=== PATIENT | female | born 1965 | race Hispanic/Latino ===

== ENCOUNTER 2017-02-12 11:42 | Emergency (ER) | payer MEDICARE ==
--- NOTE | 2017-02-12 13:35 | XRay Report ---
LEFT KNEE, 3 views: History: Left knee pain after fall There is normal bone mineralization. No evidence for acute fracture or bone lesion. Severe osteoarthritic changes are identified in all 3 compartments. There is near-complete loss of joint space in the medial compartment. Small joint effusion. IMPRESSION: Advanced osteoarthritic changes. Joint effusion. No acute injury appreciated.
[2017-02-12] MEDS ORDERED: TYLENOL PO ONE (14:09)
--- NOTE | 2017-02-12 14:51 | Emergency Department Report ---
ED Lower Extremity HPI - General Chief Complaint: Extremity Injury, Lower Stated Complaint: FALL LEFT KNEE PAIN Time Seen by Provider: 02/12/17 13:46 Source: patient Mode of arrival: Wheelchair Limitations: No Limitations - History of Present Illness Initial Comments: This is a 51-year-old female nontoxic, well nourished in appearance, no acute signs of distress presents to the ED complaining of left knee pain times one day. Patient states she was walking to her car and her right knee gave out and she slipped and the lateral left knee from standstill fall. Patient complains knee pain as aching but denies numbness or tingling. Patient stated he has decreased range of motion due to the pain with abnormal gait due to pain. Patient denies fever, chills, head trauma, loss consciousness, numbness, tingling, chest pain, shortness of breath, nausea vomiting. Patient denies any headache or blurred vision. Allergies include aspirin and penicillin and tramadol. Past medical history is hypertension. MD Complaint: knee injury -: Gradual, days(s) (2) Injury: Knee: Left Place: street/outdoors Severity: mild Severity scale (0 -10): 7 Improves With: nothing Worsens With: movement Context: fall Associated Symptoms: swelling, able to partially bear weight, ambulatory. denies: snap/pop sensation, numbness, tingling, unable to bear weight - Related Data Home Medications Medication Instructions Recorded Confirmed Last Taken Citalopram Hydrobromide [celeXA] 20 mg PO QDAY 07/30/14 07/30/14 07/29/14 21:00 Previous Rx's Medication Instructions Recorded Last Taken Type Acetaminophen/Codeine [Tylenol #3] 1 tab PO Q6H PRN #15 tab 01/29/15 Unknown Rx Ibuprofen [Motrin 800 MG tab] 800 mg PO Q8H PRN #30 tablet 01/29/15 Unknown Rx HYDROcodone/APAP 5-325 [[place] 1 each PO Q6HR PRN #12 tablet 08/05/15 Unknown Rx 5-325 mg TAB] Acetaminophen [Tylenol Arthritis] 650 mg PO Q6H #30 tablet.er 02/12/17 Unknown Rx Allergies Allergy/AdvReac Type Severity Reaction Status Date / Time aspirin Allergy Swelling Verified 07/30/14 11:44 Penicillins Allergy Swelling Verified 07/30/14 11:44 tramadol HCl [From Ultram] AdvReac Vomiting Verified 07/30/14 11:44 ED Review of Systems ROS: Stated complaint: FALL LEFT KNEE PAIN Other details as noted in HPI Constitutional: denies: chills, fever Eyes: denies: eye pain, eye discharge, vision change ENT: denies: ear pain, throat pain Respiratory: denies: cough, shortness of breath, wheezing Cardiovascular: denies: chest pain, palpitations Endocrine: no symptoms reported Gastrointestinal: denies: abdominal pain, nausea, diarrhea Genitourinary: denies: urgency, dysuria, discharge Musculoskeletal: denies: back pain, joint swelling, arthralgia Skin: denies: rash, lesions Neurological: denies: headache, weakness, paresthesias Psychiatric: denies: anxiety, depression Hematological/Lymphatic: denies: easy bleeding, easy bruising ED Past Medical Hx - Past Medical History Previous Medical History?: Yes Hx Hypertension: Yes Hx Psychiatric Treatment: Yes (bipolar, schizophrenic) Additional medical history: Cystitis, chronic back pain. chronic hip and knee pain - Surgical History Past Surgical History?: Yes Additional Surgical History: Bladder surgery - Social History Smoking Status: Never Smoker Substance Use Type: None - Medications Home Medications: Home Medications Medication Instructions Recorded Confirmed Last Taken Type Citalopram Hydrobromide [celeXA] 20 mg PO QDAY 07/30/14 07/30/14 07/29/14 21:00 History Acetaminophen/Codeine [Tylenol #3] 1 tab PO Q6H PRN #15 tab 01/29/15 Unknown Rx Ibuprofen [Motrin 800 MG tab] 800 mg PO Q8H PRN #30 tablet 01/29/15 Unknown Rx HYDROcodone/APAP 5-325 [[place] 1 each PO Q6HR PRN #12 tablet 08/05/15 Unknown Rx 5-325 mg TAB] Acetaminophen [Tylenol Arthritis] 650 mg PO Q6H #30 tablet.er 02/12/17 Unknown Rx ED Physical Exam - General Limitations: No Limitations General appearance: alert, in no apparent distress - Head Head exam: Present: atraumatic, normocephalic, normal inspection - Eye Eye exam: Present: normal appearance, PERRL, EOMI. Absent: scleral icterus, conjunctival injection, nystagmus, periorbital swelling, periorbital tenderness Pupils: Present: normal accommodation - ENT ENT exam: Present: normal exam, normal orophraynx, mucous membranes moist, TM's normal bilaterally, normal external ear exam - Neck Neck exam: Present: normal inspection, full ROM. Absent: tenderness, meningismus, lymphadenopathy, thyromegaly - Respiratory Respiratory exam: Present: normal lung sounds bilaterally. Absent: respiratory distress, wheezes, rales, rhonchi, stridor, chest wall tenderness, accessory muscle use, decreased breath sounds, prolonged expiratory - Cardiovascular Cardiovascular Exam: Present: regular rate, normal rhythm, normal heart sounds. Absent: bradycardia, tachycardia, irregular rhythm, systolic murmur, diastolic murmur, rubs, gallop - GI/Abdominal GI/Abdominal exam: Present: soft, normal bowel sounds. Absent: distended, tenderness, guarding, rebound, rigid, diminished bowel sounds - Rectal Rectal exam: Present: deferred - Extremities Exam Extremities exam: Present: normal inspection, full ROM, tenderness, normal capillary refill. Absent: pedal edema, joint swelling, calf tenderness - Expanded Lower Extremity Exam Left Hip exam: Present: normal inspection, full ROM, external rotation, internal rotation, pelvic stability. Absent: tenderness, swelling, abrasion, laceration , ecchymosis, deformity, crepidus, dislocation, erythema, shortening Upper Leg exam: Present: normal inspection, full ROM. Absent: tenderness, swelling, abrasion, laceration, ecchymosis, deformity, crepidus, dislocation, erythema Knee exam: Present: normal inspection, full ROM, tenderness, swelling, ecchymosis, full knee extension. Absent: abrasion, laceration, deformity, crepidus, dislocation, erythema, effusion, pain w/ pronation/supination, posterior draw sign, pain/laxity with valgus, pain/laxity with varus Lower Leg exam: Present: normal inspection, full ROM. Absent: tenderness, swelling, abrasion, laceration, ecchymosis, deformity, crepidus, dislocation, erythema, palpable cord, Jennifer's sign Ankle exam: Present: normal inspection, full ROM. Absent: tenderness, swelling , abrasion, laceration, ecchymosis, deformity, crepidus, dislocation, erythema, anterior draw sign Foot/Toe exam: Present: normal inspection, full ROM. Absent: tenderness, swelling, abrasion, laceration, ecchymosis, deformity, crepidus, dislocation, erythema, amputation, puncture wound, foreign body, calcaneal tenderness, tenderness at base of 5th metatarsal, nail avulsion, subungual hematoma Neuro vascular tendon exam: Present: no vascular compromise. Absent: pulse deficit, abnormal cap refill, motor deficit, sensory deficit, tendon deficit, extremity cold to touch, pallor, abnormal 2-point discrimination, decreased fine /light touch, foot drop, peroneal nerve deficit, significant pain with passive ROM of distal joint Gait: Positive: observed and limited by pain - Back Exam Back exam: Present: normal inspection, full ROM. Absent: tenderness, CVA tenderness (R), CVA tenderness (L), muscle spasm, paraspinal tenderness, vertebral tenderness, rash noted - Neurological Exam Neurological exam: Present: alert, oriented X3, CN II-XII intact, normal gait, reflexes normal - Psychiatric Psychiatric exam: Present: normal affect, normal mood - Skin Skin exam: Present: warm, dry, intact, normal color. Absent: rash ED Course Vital Signs 02/12/17 11:53 Temperature 97.7 F Pulse Rate 79 Blood Pressure 135/65 - Reevaluation(s) Reevaluation #1: 02/12/17 14:52 Patient is speaking in full sentences with no signs of distress noted. ED Lower Extremity MDM - Medical Decision Making this is a 51-year-old female that presents with left knee strain status post fall. X-ray has been obtained and dictated by Dr. Duong. Impression; advance as arthritic changes with small joint effusion and no fractures or dislocations noted. Patient is notified of x-ray results with no gross motor by the patient. It was instructed to follow-up with Dr. Aguirre or another orthopedic doctor in 3-5 days or if symptoms worse and continue return to emergency room as soon as possible. Patient received a knee immobilizer as well as crutches and crutches has been educated by RN. At time time of discharge, the patient does not seem toxic or ill in appearance. No acute signs of distress noted. Patient agrees to discharge treatment plan of care. No further questions noted by the patient. Patient was also instructed to rest, elevate, ice extremity. Patient received acetaminophen and ice to the extremity in the ED. Critical care attestation.: If time is entered above; I have spent that time in minutes in the direct care of this critically ill patient, excluding procedure time. ED Disposition Clinical Impression: Strain of left knee Qualifiers: Encounter type: initial encounter Qualified Code(s): S86.912A - Strain of unspecified muscle(s) and tendon(s) at lower leg level, left leg, initial encounter Disposition: TO HOME OR SELFCARE Is pt being admited?: No Does the pt Need Aspirin: No Condition: Stable Instructions: Knee Pain (ED), Knee Immobilizer (ED), Crutch Instructions (ED), RICE Therapy (ED), Acetaminophen (By mouth) Additional Instructions: follow-up with Dr. Aguirre or another orthopedic doctor in 3-5 days or if symptoms worse and continue return to emergency room as soon as possible. Rest, elevate, ice extremity. Prescriptions: Acetaminophen [Tylenol Arthritis] 650 mg PO Q6H #30 tablet.er Referrals: PRIMARY MD SAMMY [Primary Care Provider] - 3-5 Days KEVIN AGUIRRE MD [Staff Physician] - 3-5 Days [facility] [Outside] - 3-5 Days [facility] [Outside] - 3-5 Days
[2017-02-12 15:45] VITALS: BP 132/71
== END 2017-02-12 15:38 | disposition home or self-care (01) ==
LOC: ED 11:42
DX: S86.912A Strain of unspecified muscle(s) and tendon(s) at lower leg level, left leg, initial encounter (principal); I10 Essential (primary) hypertension; G89.29 Other chronic pain; F20.9 Schizophrenia, unspecified; Z88.0 Allergy status to penicillin; Z79.82 Long term (current) use of aspirin; Z88.8 Allergy status to other drugs, medicaments and biological substances; F41.9 Anxiety disorder, unspecified

== ENCOUNTER 2019-01-07 08:33 | Emergency (ER) | payer MEDICARE ==
[2019-01-07] MEDS ORDERED: MORPHINE IV ONE (10:40)
--- NOTE | 2019-01-07 10:44 | Emergency Department Report ---
ED General Adult HPI - General Chief complaint: Neuro Symptoms/Deficit Stated complaint: PAIN IN LEFT LEG Time Seen by Provider: 01/07/19 10:27 Source: patient, EMS Mode of arrival: Stretcher Limitations: No Limitations - History of Present Illness Initial comments: 52-year-old female presents to ED with complaint of neck pain, left arm pain and numbness since this morning. She states she woke up with the pain this morning at around 7 AM. Patient states pain is radiating from the neck to the left shoulder down into the left arm with tingling present. Patient denies any weakness in the left arm. Denies injury. Patient denies any numbness or we akness in the left leg, however she does report one to 2 month history of cellulitis that has been treated with 2 different antibiotics, one of which was Bactrim, patient does not remember the other antibiotic she was on. Denies fever. Reports warmth, redness, pain in the left lower leg. Patient reports history of arthritis, chronic back pain for which she currently takes Percocet and morphine at home. PCP: Madd[place] -: This morning Location: neck, left, upper extremity, lower extremity Severity scale (0 -10): 10 Quality: sharp Consistency: constant Improves with: none Worsens with: none Associated Symptoms: denies: chest pain, cough, fever/chills, headaches, nausea/vomiting, shortness of breath - Related Data Home Medications Medication Instructions Recorded Confirmed Last Taken Citalopram Hydrobromide [celeXA] 20 mg PO QDAY 07/30/14 01/07/19 01/06/19 ARIPiprazole [Abilify TAB] 5 mg PO DAILY 01/07/19 01/07/19 01/06/19 Allopurinol [Zyloprim] 300 mg PO QDAY 01/07/19 01/07/19 01/06/19 AtorvaSTATin [Lipitor] 40 mg PO QHS 01/07/19 01/07/19 01/06/19 Cariprazine HCl [Vraylar] 1.5 mg PO QDAY 01/07/19 01/07/19 01/06/19 Clindamycin [Clindamycin CAP] 600 mg PO BID 01/07/19 01/07/19 01/06/19 Gabapentin [Neurontin] 300 mg PO Q8HR 01/07/19 01/07/1901/06/19 Levothyroxine [Synthroid] 75 mcg PO QAM 01/07/19 01/07/19 01/06/19 Lidocaine [Lidocaine OINT] 30 gm TP 2XWHS 01/07/19 01/07/19 01/06/19 Morphine Sulfate [Ms Contin] 60 mg PO Q12H 01/07/19 01/07/19 01/03/19 Pregabalin [Lyrica] 100 mg PO BID 01/07/19 01/07/19 01/06/19 oxyCODONE /ACETAMINOPHEN [Percocet 1 tab PO Q8H 01/07/19 01/07/19 01/05/19 5/325] Previous Rx's Medication Instructions Recorded Last Taken Type Clindamycin [Clindamycin CAP] 300 mg PO Q8H #21 cap 01/07/19 Unknown Rx methOCARBAMOL [Robaxin TAB] 500 mg PO Q8HR PRN #20 tablet 01/07/19 Unknown Rx Allergies Allergy/AdvReac Type Severity Reaction Status Date / Time aspirin Allergy Swelling Verified 07/30/14 11:44 Penicillins Allergy Swelling Verified 07/30/14 11:44 tramadol HCl [From Ultram] AdvReac Vomiting Verified 07/30/14 11:44 ED Review of Systems ROS: Stated complaint: PAIN IN LEFT LEG Other details as noted in HPI Comment: All other systems reviewed and negative Constitutional: denies: chills, fever Respiratory: denies: cough, shortness of breath Cardiovascular: denies: chest pain Gastrointestinal: denies: nausea, vomiting Musculoskeletal: other (reports neck pain, left arm pain, left leg pain) Neurological: paresthesias. denies: headache, weakness ED Past Medical Hx - Past Medical History Hx Hypertension: Yes Hx Psychiatric Treatment: Yes (bipolar, schizophrenic) Additional medical history: Cystitis, chronic back pain. chronic hip and knee pain - Surgical History Additional Surgical History: Bladder surgery - Social History Smoking Status: Current Every Day Smoker - Medications Home Medications: Home Medications Medication Instructions Recorded Confirmed Last Taken Type Citalopram Hydrobromide [celeXA] 20 mg PO QDAY 07/30/14 01/07/19 01/06/19 History ARIPiprazole [Abilify TAB] 5 mg PO DAILY 01/07/19 01/07/19 01/06/19 History Allopurinol [Zyloprim] 300 mg PO QDAY 01/07/19 01/07/19 01/06/19 History AtorvaSTATin [Lipitor] 40 mg PO QHS 01/07/19 01/07/19 01/06/19 History Cariprazine HCl [Vraylar] 1.5 mg PO QDAY 01/07/19 01/07/19 01/06/19 History Clindamycin [Clindamycin CAP] 300 mg PO Q8H #21 cap 01/07/19 Unknown Rx Clindamycin [Clindamycin CAP] 600 mg PO BID 01/07/19 01/07/19 01/06/19 History Gabapentin [Neurontin] 300 mg PO Q8HR 01/07/19 01/07/19 01/06/19 History Levothyroxine [Synthroid] 75 mcg PO QAM 01/07/19 01/07/19 01/06/19 History Lidocaine [Lidocaine OINT] 30 gm TP 2XWHS 01/07/19 01/07/19 01/06/19 History Morphine Sulfate [Ms Contin] 60 mg PO Q12H 01/07/19 01/07/19 01/03/19 History Pregabalin [Lyrica] 100 mg PO BID 01/07/19 01/07/19 01/06/19 History methOCARBAMOL [Robaxin TAB] 500 mg PO Q8HR PRN #20 tablet 01/07/19 Unknown Rx oxyCODONE /ACETAMINOPHEN [Percocet 1 tab PO Q8H 01/07/19 01/07/19 01/05/19 History 5/325] ED Physical Exam - General Limitations: No Limitations General appearance: alert, in no apparent distress, obese - Head Head exam: Present: atraumatic, normocephalic - Eye Eye exam: Present: normal appearance, PERRL, EOMI - ENT ENT exam: Present: mucous membranes moist - Neck Neck exam: Present: tenderness - Respiratory Respiratory exam: Present: normal lung sounds bilaterally. Absent: respiratory distress - Cardiovascular Cardiovascular Exam: Present: regular rate, normal rhythm - GI/Abdominal GI/Abdominal exam: Present: soft. Absent: distended, tenderness - Extremities Exam Extremities exam: Present: other (no swelling or deformity to left arm; left lower leg erythematous, tender) - Neurological Exam Neurological exam: Present: alert, oriented X3, CN II-XII intact. Absent: motor sensory deficit - Psychiatric Psychiatric exam: Present: normal affect, normal mood - Skin Skin exam: Present: warm, dry, intact, normal color ED Course Vital Signs 01/07/19 01/07/19 01/07/19 08:36 08:53 09:01 Temperature 98.2 F Pulse Rate 86 Respiratory 26 H 26 H Rate Blood Pressure Blood Pressure 142/75 134/81 [Left] O2 Sat by Pulse 97 97 Oximetry 01/07/19 01/07/19 01/07/19 09:54 10:00 10:30 Temperature Pulse Rate 82 82 87 Respiratory 24 25 H 21 Rate Blood Pressure 151/59 154/97 147/87 Blood Pressure [Left] O2 Sat by Pulse 99 93 Oximetry 01/07/19 01/07/19 01/07/19 11:00 11:23 11:40 Temperature Pulse Rate 85 81 Respiratory 13 18 17 Rate Blood Pressure 132/84 132/84 Blood Pressure [Left] O2 Sat by Pulse 98 100 Oximetry 01/07/19 01/07/19 01/07/19 11:57 12:00 12:30 Temperature 98.4 F Pulse Rate 84 83 Respiratory 24 14 Rate Blood Pressure 127/68 117/74 Blood Pressure [Left] O2 Sat by Pulse 96 93 Oximetry 01/07/19 13:00 Temperature Pulse Rate 84 Respiratory 17 Rate Blood Pressure Blood Pressure 112/74 [Left] O2 Sat by Pulse 98 Oximetry ED Medical Decision Making - Lab Data Result diagrams: 01/07/19 11:09 01/07/19 11:09 - EKG Data -: EKG Interpreted by Ia EKG shows normal: sinus rhythm, axis, intervals, QRS complexes, ST-T waves Rate: normal - EKG Data Interpretation: no acute changes - Radiology Data Radiology results: report reviewed, image reviewed - Medical Decision Making - neck and left arm pain w/ assoc paresthesias, likely cervical radiculopathy, strength is normal - left leg pain and redness x 2 months, US negative for DVT - pt reports having already been on bactrim, will prescribe clindamycin - advised to f/u w/ PCP - return precautions given - Differential Diagnosis DVT, cellulitis, radiculopathy Critical care attestation.: If time is entered above; I have spent that time in minutes in the direct care of this critically ill patient, excluding procedure time. ED Disposition Clinical Impression: Cellulitis, Cervical radiculopathy Disposition: TO HOME OR SELFCARE Is pt being admited?: No Condition: Stable Instructions: Cellulitis (ED), Cervical Radiculopathy (ED) Prescriptions: Clindamycin [Clindamycin CAP] 300 mg PO Q8H #21 cap methOCARBAMOL [Robaxin TAB] 500 mg PO Q8HR PRN #20 tablet PRN Reason: Muscle Spasm Referrals: JEFF OLIVA MD [Primary Care Provider] - 3-5 Days Time of Disposition: 12:56
[2019-01-07 12:06] LABS: BUN/Creatinine Ratio 13; Blood Urea Nitrogen 9 mg/dL (7-17); Calcium 9.2 mg/dL (8.4-10.2); Hemolysis Index 83
[2019-01-07] MEDS ORDERED: PERCOCET 5/325 PO ONE (12:07)
[2019-01-07 12:10] LABS: Basophils % (Auto) 0.2 % (0.0-1.8); Eosinophils # (Auto) 0.1 K/mm3 (0.0-0.4); Eosinophils % (Auto) 1.1 % (0.0-4.3); Hematocrit 42.9 % (30.3-42.9); Hemoglobin 14.4 gm/dl (10.1-14.3); Lymphocytes # (Auto) 2.1 K/mm3 (1.2-5.4); Mean Corpuscular HGB Conc 34 % (30-34); Mean Corpuscular Volume 94 fl (79-97); Monocytes # (Auto) 0.6 K/mm3 (0.0-0.8); Monocytes % (Auto) 6.7 % (0.0-7.3); Platelet Count 202 K/mm3 (140-440); Red Blood Count 4.55 M/mm3 (3.65-5.03); Red Cell Distribution Width 15.9 % (13.2-15.2)
[2019-01-07 12:25] LABS: Partial Thromboplastin Time 29.8 Sec. (24.2-36.6)
--- NOTE | 2019-01-07 12:53 | Vascular Lab Report ---
VL venous duplex LE LT INDICATION / CLINICAL INFORMATION: pain, swelling. COMPARISON: None available. FINDINGS: No evidence of deep vein thrombosis. IMPRESSION: 1. Negative study. Signer Name: Mau Cordova MD Signed: 01/07/2019 12:49 PM Workstation Name: [id number]
[2019-01-07 13:22] VITALS: BP 112/74
== END 2019-01-07 13:05 | disposition home or self-care (01) ==
LOC: ED 08:33
DX: M54.12 Radiculopathy, cervical region (principal); L03.116 Cellulitis of left lower limb; I10 Essential (primary) hypertension; F31.9 Bipolar disorder, unspecified; F20.9 Schizophrenia, unspecified; G89.29 Other chronic pain; F17.200 Nicotine dependence, unspecified, uncomplicated; Z79.899 Other long term (current) drug therapy; Z88.6 Allergy status to analgesic agent; Z88.0 Allergy status to penicillin
CPT/HCPCS: 36415; 80048; 85025; 85610; 85730; 93005; 93010; 93971; 96374; 99285; J2270

== ENCOUNTER 2021-01-17 15:51 | Observation (INO) | payer MEDICARE ==
[2021-01-17] MEDS ORDERED: NALOXONE 0.4 MG/1 ML INJ IV PRN (16:05)
[2021-01-17] MEDS ORDERED: NALOXONE 2 MG/2 ML INJ IV ONE (16:05)
[2021-01-17] MEDS: DEXTROSE 50% IN WATER (25GM) 50 ML SYRINGE IV PRN ×2 (16:08→22:08)
--- NOTE | 2021-01-17 16:11 | Event Note ---
Date: 01/17/21 The patient was evaluated in the emergency department for symptoms described in the history of present illness. He/she was evaluated in the context of the global COVID-19 pandemic, which necessitated consideration that the patient might be at risk for infection with the virus that causes COVID-19. Institutional protocols and algorithms that pertain to the evaluation of patients at risk for COVID-19 are in a state of rapid change based on information released by regulatory bodies including the CDC and federal and state organizations. These policies and algorithms were followed during the patient's care in the emergency department. Please note that these policies, procedures and recommendations changed on a rapid basis. Medical screening examination: The patient is a 55-year-old female who is not known to myself previously, who was brought to the hospital by emergency medical services with a complaint of altered mental status. History entirely obtained from EMS as the patient is altered. EMS reports the patient was in a fast [employer] parking lot for approximately 3 hours. However, her last known well time is not explicitly known. The patient was resting in her car. 911 was contacted because the patient appeared to be unresponsive. EMS reports negative stroke scale in the field, and unremarkable vital signs and Accu-Chek. Here in the emergency room, glucose is 66. The patient is sleepy but arousable. She responds to sternal stimuli. She states that she has total body pain. She states she does not have chronic medical conditions. However, she then falls back to sleep. She is found to be hypoxic on room air, 90 to 94%. She is morbidly obese. She also has lower extremity edema. Place patient on isolation, youth nutritional monitor, administer supplemental oxygen. Obtain arterial blood gas on room air, x-ray the chest, noncontrast CT scan of the brain, EKG, urinalysis, rectal temperature, and appropriate laboratory studies. Reassess after initial data points. Anticipate admission to the medical service once initial diagnostics have resulted. Place patient on Accu-Cheks every 1 hour, as needed dextrose, as needed Narcan. 04: 41 PM/01/17/2021 Patient given 0.5 mg of Narcan. She has become remarkably more responsive. At this point time, suspect opioid overdose. Remainder of laboratory studies and diagnostic work-up is pending. will place patient on 2012 on this time pending clinical sobriety and completion of work up Labs 01/17/21 01/17/21 01/17/21 15:53 16:16 16:17 WBC RBC Hgb Hct MCV MCH MCHC RDW Plt Count Lymph % (Auto) [place] % (Auto) Eos % (Auto) Baso % (Auto) Lymph # (Auto) [place] # (Auto) Eos # (Auto) Baso # (Auto) Seg Neutrophils % Seg Neutrophils # PT INR APTT ABG pH 7.395 POC ABG pCO2 41.5 POC ABG pO2 111.5 H POC ABG HCO3 24.8 ABG O2 Saturation 98.4 POC ABG Base Excess -0.1 ABG Hemoglobin 14.3 ABG Oxyhemoglobin 94.4 ABG Methemoglobin 0.3 ABG Sodium 139.4 ABG Potassium 3.0 L ABG Chloride 105.0 ABG Glucose 175 H Carboxyhemoglobin 3.8 H FiO2 % 21.0 Sodium Potassium Chloride Carbon Dioxide Anion Gap BUN Creatinine Estimated GFR BUN/Creatinine Ratio Glucose POC Glucose 66 L 154 H Lactic Acid Calcium Magnesium Total Bilirubin AST ALT Alkaline Phosphatase Ammonia Total Creatine Kinase Troponin T NT-Pro-B Natriuret Pep Total Protein Albumin Albumin/Globulin Ratio TSH Arterial Blood Glucose 175 H Arterial Blood Ionized Calcium 4.7 Salicylates Acetaminophen Plasma/Serum Alcohol 01/17/21 01/17/21 01/17/21 17:09 17:09 17:09 WBC 10.2 RBC 4.60 Hgb 14.7 H Hct 45.2 H MCV 98 H MCH 32 MCHC 33 RDW 14.7 Plt Count 219 Lymph % (Auto) [employer]st [place] % (Auto) Data Warehouse [employer]st Eos % (Auto) Data Warehouse [employer]st Baso % (Auto) Data Warehouse Analyst Lymph # (Auto) Data Warehouse Analyst [place] # (Auto) Data Warehouse Analyst Eos # (Auto) Data Warehouse Analyst Baso # (Auto) Data Warehouse Analyst Seg Neutrophils % Data Warehouse Analyst Seg Neutrophils # Data Warehouse Analyst PT 14.2 INR 1.05 APTT 33.5 ABG pH POC ABG pCO2 POC ABG pO2 POC ABG HCO3 ABG O2 Saturation POC ABG Base Excess ABG Hemoglobin ABG Oxyhemoglobin ABG Methemoglobin ABG Sodium ABG Potassium ABG Chloride ABG Glucose Carboxyhemoglobin FiO2 % Sodium 144 Potassium 3.5 L Chloride 106.1 Carbon Dioxide 28 Anion Gap 13 BUN 12 Creatinine 0.8 Estimated GFR > 60 BUN/Creatinine Ratio 15 Glucose 64 L POC Glucose Lactic Acid Calcium 9.5 Magnesium 2.20 Total Bilirubin 0.70 AST 15 ALT 9 Alkaline Phosphatase 96 Ammonia Total Creatine Kinase 107 Troponin T < 0.010 NT-Pro-B Natriuret Pep 72.91 Total Protein 6.4 Albumin 3.8 L Albumin/Globulin Ratio 1.5 TSH Arterial Blood Glucose Arterial Blood Ionized Calcium Salicylates Acetaminophen Plasma/Serum Alcohol 01/17/21 01/17/21 01/17/21 17:09 17:09 17:09 WBC RBC Hgb Hct MCV MCH MCHC RDW Plt Count Lymph % (Auto) [place] % (Auto) Eos % (Auto) Baso % (Auto) Lymph # (Auto) [place] # (Auto) Eos # (Auto) Baso # (Auto) Seg Neutrophils % Seg Neutrophils # PT INR APTT ABG pH POC ABG pCO2 POC ABG pO2 POC ABG HCO3 ABG O2 Saturation POC ABG Base Excess ABG Hemoglobin ABG Oxyhemoglobin ABG Methemoglobin ABG Sodium ABG Potassium ABG Chloride ABG Glucose Carboxyhemoglobin FiO2 % Sodium Potassium Chloride Carbon Dioxide Anion Gap BUN Creatinine Estimated GFR BUN/Creatinine Ratio Glucose POC Glucose Lactic Acid 1.50 Calcium Magnesium Total Bilirubin AST ALT Alkaline Phosphatase Ammonia 66.0 H Total Creatine Kinase Troponin T NT-Pro-B Natriuret Pep Total Protein Albumin Albumin/Globulin Ratio TSH 5.130 H Arterial Blood Glucose Arterial Blood Ionized Calcium Salicylates Acetaminophen Plasma/Serum Alcohol 01/17/21 01/17/21 01/17/21 17:09 17:09 17:09 WBC RBC Hgb Hct MCV MCH MCHC RDW Plt Count Lymph % (Auto) [place] % (Auto) Eos % (Auto) Baso % (Auto) Lymph # (Auto) [place] # (Auto) Eos # (Auto) Baso # (Auto) Seg Neutrophils % Seg Neutrophils # PT INR APTT ABG pH POC ABG pCO2 POC ABG pO2 POC ABG HCO3 ABG O2 Saturation POC ABG Base Excess ABG Hemoglobin ABG Oxyhemoglobin ABG Methemoglobin ABG Sodium ABG Potassium ABG Chloride ABG Glucose Carboxyhemoglobin FiO2 % Sodium Potassium Chloride Carbon Dioxide Anion Gap BUN Creatinine Estimated GFR BUN/Creatinine Ratio Glucose POC Glucose Lactic Acid Calcium Magnesium Total Bilirubin AST ALT Alkaline Phosphatase Ammonia Total Creatine Kinase Troponin T NT-Pro-B Natriuret Pep Total Protein Albumin Albumin/Globulin Ratio TSH Arterial Blood Glucose Arterial Blood Ionized Calcium Salicylates < 0.3 L Acetaminophen 5.0 L Plasma/Serum Alcohol < 0.[address] scan of the brain is negative for acute finding CT head/brain wo con INDICATION: Altered Mental Status. TECHNIQUE: All CT scans at this location are performed using CT dose reduction for ALARA by means of automated exposure control. COMPARISON: None available. FINDINGS: There is no evidence of hemorrhage, hydrocephalus, brain edema, or mass effect/mass lesion. There is a chronic lacunar infarct in the right gangliocapsular region. The included paranasal sinuses and mastoid air cells are clear. The orbits appear unremarkable. IMPRESSION: 1. No acute intracranial abnormality. Signer Name: Asim Mendoza MD Signed: 01/17/2021 5:58 PM Workstation Name: [email or web address]
[2021-01-17] MEDS ORDERED: LORazepam 2 MG/ML VIAL IM PRN (16:47)
[2021-01-17] MEDS ORDERED: HALOPERIDOL LACTATE 5 MG/1 ML INJ IM PRN (16:47)
[2021-01-17 17:58] LABS: Hematocrit 45.2 % (30.3-42.9); Hemoglobin 14.7 gm/dl (10.1-14.3); Mean Corpuscular HGB Conc 33 % (30-34); Mean Corpuscular Volume 98 fl (79-97); Platelet Count 219 K/mm3 (140-440); Red Cell Distribution Width 14.7 % (13.2-15.2)
[2021-01-17 17:59] LABS: INR 1.05 (0.87-1.13)
[2021-01-17 18:00] LABS: Alanine Aminotransferase 9 units/L (7-56); Albumin 3.8 g/dL (3.9-5); BUN/Creatinine Ratio 15; Blood Urea Nitrogen 12 mg/dL (7-17); Calcium 9.5 mg/dL (8.4-10.2); Hemolysis Index 9; Partial Thromboplastin Time 33.5 Sec. (24.2-36.6)
[2021-01-17] MEDS ORDERED: POTASSIUM CHLORIDE 40 MEQ in DEXTROSE 10% IN WATER 1,000 ML IV SCH (18:45)
--- NOTE | 2021-01-17 19:02 | Cat Scan Report ---
CT head/brain wo con INDICATION: Altered Mental Status. TECHNIQUE: All CT scans at this location are performed using CT dose reduction for ALARA by means of automated e xposure control. COMPARISON: None available. FINDINGS: There is no evidence of hemorrhage, hydrocephalus, brain edema, or mass effect/mass lesion. There is a chronic lacunar infarct in the right gangliocapsular region. The included paranasal sinuses and mastoid air cells are clear. The orbits appear unremarkable. IMPRESSION: 1. No acute intracranial abnormality. Signer Name: Asim Mendoza MD Signed: 01/17/2021 6:58 PM Workstation Name: [id number]
[2021-01-17] MEDS ORDERED: LACTULOSE 20 GM/30 ML ORAL LIQD PO PRN (19:26)
--- NOTE | 2021-01-17 20:19 | XRay Report ---
CHEST 1 VIEW 01/17/2021 6:54 PM INDICATION / CLINICAL INFORMATION: hypoxia ams. COMPARISON: None available. FINDINGS: SUPPORT DEVICES: None. HEART / MEDIASTINUM: No significant abnormality. LUNGS / PLEURA: There are low lung volumes with bibasilar opacities No pneumothorax. ADDITIONAL FINDINGS: No significant additional findings. IMPRESSION: 1. Bibasilar opacities which may be secondary to hypoventilatory changes; however, infectious process should be considered in the appropriate clinical setting. Signer Name: Troy Almodovar DO Signed: 01/17/2021 8:14 PM Workstation Name: [email or web address]
[2021-01-17] MEDS ORDERED: dexAMETHasone 4 MG/ML VIAL IV ONE (20:20)
--- NOTE | 2021-01-17 20:42 | Emergency Department Report ---
ED General Adult HPI - General Chief complaint: Altered Mental Status Stated complaint: AMS PUI?: Yes Time Seen by Provider: 01/17/21 20:37 Source: patient, EMS (Verbal report received from emergency medical services. EMS documentation not available at time of chart dictation ), RN notes reviewed, old records reviewed Mode of arrival: Stretcher Limitations: Altered Mental Status - History of Present Illness Initial comments: The patient was evaluated in the emergency department for symptoms described in the history of present illness. He/she was evaluated in the context of the global COVID-19 pandemic, which necessitated consideration that the patient might be at risk for infection with the virus that causes COVID-19. Institutional protocols and algorithms that pertain to the evaluation of patients at risk for COVID-19 are in a state of rapid change based on information released by regulatory bodies including the CDC and federal and state organizations. These policies and algorithms were followed during the pat ient's care in the emergency department. Please note that these policies, procedures and recommendations changed on a rapid basis. The patient is a 55-year-old female. She is not known to myself previously. She is brought to the hospital by EMS with a complaint of altered mental status as per EMS. EMS reported that the patient was in a fast food parking lot for at least 3 hours, although her exact last known well time is not known. EMS reported the patient was sleepy but arousable in the field, and had a negative stroke scale. They also reported normal Accu-Chek. Initially in the emergency room, the patient is sleepy but arousable to noxious stimuli. She is protecting her airway, but initially is somewhat hypoxic. An Accu-Chek is 66. Patient had some improvement in mental status with 0.5 mg of Narcan, however, after Narcan administration, became agitated, and did not demonstrate decision- making capacity. It was explained to the patient that she was in the hospital, and being evaluated for altered mental status. The patient complained of body pain. However, she was unable to have a rational or lucid conversation. She was therefore placed on a 2013, and required as needed Haldol and Ativan. Laboratory studies were obtained and were essentially unremarkable with the e xception of glucose of 64. Noncontrast CT scan of the brain was negative for acute findings. She was also somewhat hyperammonemic to 66, and had a slightly elevated TSH. X-ray of the chest suggested possible viral process. Patient continue to try to get herself out of stretcher, but again does not have decision-making capacity or lucid thought process. It was calmly and patiently explained to patient that she is ill, having low blood sugar, and also having low oxygen levels on pulse ox, with a concern for Covid. The patient did not respond to verbal de-escalation techniques. The patient did not respond to show of force. She therefore required wrist restraints. The patient is not accompanied by friends or family at this time for collateral information or additional information. -: unknown - Related Data Home Medications Medication Instructions Recorded Confirmed Last Taken Citalopram Hydrobromide [celeXA] 20 mg PO QDAY 07/30/14 01/07/19 01/06/19 ARIPiprazole [Abilify TAB] 5 mg PO DAILY 01/07/19 01/07/19 01/06/19 AtorvaSTATin [Lipitor] 40 mg PO QHS 01/07/19 01/07/19 01/06/19 Cariprazine HCl [Vraylar] 1.5 mg PO QDAY 01/07/19 01/07/19 01/06/19 Clindamycin [Clindamycin CAP] 600 mg PO BID 01/07/19 01/07/19 01/06/19 Gabapentin [Neurontin] 300 mg PO Q8HR 01/07/19 01/07/19 01/06/19 Levothyroxine [Synthroid] 75 mcg PO QAM 01/07/19 01/07/19 01/06/19 Lidocaine [Lidocaine OINT] 30 gm TP 2XWHS 01/07/19 01/07/19 01/06/19 Morphine Sulfate [Ms Contin] 60 mg PO Q12H 01/07/19 01/07/19 01/03/19 Pregabalin [Lyrica] 100 mg PO BID 01/07/19 01/07/19 01/06/19 allopurinoL [Zyloprim] 300 mg PO QDAY 01/07/19 01/07/19 01/06/19 oxyCODONE /ACETAMINOPHEN [Percocet 1 tab PO Q8H 01/07/19 01/07/19 01/05/19 5/325] Previous Rx's Medication Instructions Recorded Last Taken Type Clindamycin [Clindamycin CAP] 300 mg PO Q8H #21 cap 01/07/19 Unknown Rx methOCARBAMOL [Robaxin TAB] 500 mg PO Q8HR PRN #20 tablet 01/07/19 Unknown Rx Allergies Allergy/AdvReac Type Severity Reaction Status Date / Time aspirin Allergy Swelling Verified 07/30/14 11:44 Penicillins Allergy Swelling Verified 07/30/14 11:44 tramadol HCl [From Ultram] AdvReac Vomiting Verified 07/30/14 11:44 ED Review of Systems ROS: Stated complaint: AMS Other details as noted in HPI Comment: Unobtainable due to pts medical conditions ED Past Medical Hx - Past Medical History Hx Hypertension: Yes Hx Psychiatric Treatment: Yes (bipolar, schizophrenic) Additional medical history: Cystitis, chronic back pain. chronic hip and knee pain - Surgical History Additional Surgical History: Bladder surgery - Social History Smoking Status: Current Every Day Smoker - Medications Home Medications: Home Medications Medication Instructions Recorded Confirmed Last Taken Type Citalopram Hydrobromide [celeXA] 20 mg PO QDAY 07/30/14 01/07/19 01/06/19 History ARIPiprazole [Abilify TAB] 5 mg PO DAILY 01/07/19 01/07/19 01/06/19 History AtorvaSTATin [Lipitor] 40 mg PO QHS 01/07/19 01/07/19 01/06/19 History Cariprazine HCl [Vraylar] 1.5 mg PO QDAY 01/07/19 01/07/19 01/06/19 History Clindamycin [Clindamycin CAP] 300 mg PO Q8H #21 cap 01/07/19 Unknown Rx Clindamycin [Clindamycin CAP] 600 mg PO BID 01/07/19 01/07/19 01/06/19 History Gabapentin [Neurontin] 300 mg PO Q8HR 01/07/19 01/07/19 01/06/19 History Levothyroxine [Synthroid] 75 mcg PO QAM 01/07/19 01/07/19 01/06/19 History Lidocaine [Lidocaine OINT] 30 gm TP 2XWHS 01/07/19 01/07/19 01/06/19 History Morphine Sulfate [Ms Contin] 60 mg PO Q12H 01/07/19 01/07/19 01/03/19 History Pregabalin [Lyrica] 100 mg PO BID 01/07/19 01/07/19 01/06/19 History allopurinoL [Zyloprim] 300 mg PO QDAY 01/07/19 01/07/19 01/06/19 History methOCARBAMOL [Robaxin TAB] 500 mg PO Q8HR PRN #20 tablet 01/07/19 Unknown Rx oxyCODONE /ACETAMINOPHEN [Percocet 1 tab PO Q8H 01/07/19 01/07/19 01/05/19 His tory 5/325] ED Physical Exam - General Limitations: Altered Mental Status General appearance: lethargic, obese - Head Head exam: Present: atraumatic, normocephalic - Eye Eye exam: Present: normal appearance, PERRL, EOMI - ENT ENT exam: Present: normal exam, normal orophraynx, mucous membranes moist, normal external ear exam - Neck Neck exam: Present: normal inspection, full ROM. Absent: tenderness, meningismus - Respiratory Respiratory exam: Present: chest wall tenderness. Absent: stridor - Cardiovascular Cardiovascular Exam: Present: regular rate, normal rhythm, other (Cardiac auscultation not performed secondary to lack of disposable stethoscope. Cardiac rhythm and rate appreciated on monitor.). Absent: diastolic murmur - GI/Abdominal GI/Abdominal exam: Present: soft. Absent: distended, tenderness, guarding, rebound, rigid, pulsatile mass - Extremities Exam Extremities exam: Present: normal inspection, full ROM, pedal edema (2+ edema in the bilateral lower extremity), other (2+ pulses noted in the bilateral upper and lower extremities. There is no palpable cord. negative Homans sign. Muscular compartments are soft. The pelvis is stable.). Absent: calf tende rness - Back Exam Back exam: Present: normal inspection. Absent: tenderness, CVA tenderness (R), CVA tenderness (L), paraspinal tenderness, vertebral tenderness - Neurological Exam Neurological exam: Present: altered, other (The patient is sleepy but arousable to noxious stimuli. There is no facial droop. Moves 4 extremities in response to pain. When more awake after Narcan, is noted to moving 4 extremities spontan eously.) - Skin Skin exam: Present: warm, dry, intact, normal color. Absent: rash ED Course Vital Signs 01/17/21 01/17/21 01/17/21 16:05 17:45 21:02 Temperature 97.8 F Pulse Rate 68 92 H 61 Respiratory 15 16 11 L Rate Blood Pressure Blood Pressure 124/71 137/68 [Right] O2 Sat by Pulse 95 98 97 Oximetry 01/17/21 01/17/21 21:11 21:16 Temperature Pulse Rate 63 Respiratory 11 L Rate Blood Pressure 108/67 Blood Pressure [Right] O2 Sat by Pulse 100 96 Oximetry - Reevaluation(s) Reevaluation #1: 01/17/21 20:43 Differential diagnosis, including but not limited to: Toxic encephalopathy, metabolic encephalopathy, pneumonia, urinary tract infection, COVID-19 Assessment and plan: 55-year-old female who is morbidly obese, with altered mental status with the last known well time that is not explicitly known, and a nonfocal motor examination. CT scan of the brain is negative for acute findings. On room air prior to Narcan, saturating at 90%, in conjunction with morbid obesity, I suspect obstructive sleep apnea, obesity hypoventilation syndrome. She is placed on Accu-Cheks every 1 hour, and ordered for D10 drip. Lactulose ordered for hyperammonemia at 66, steroids ordered empirically. Isolation precautions ordered, Covid swab ordered. Patient also placed on 2012, although I suspect her altered mental status is likely secondary to opioids, as well as hypoglycemia. Patient meets criteria for admission and hospitalization secondary to altered mental status secondary to presumed multifactorial toxic metabolic encephalopathy. She will be admitted to the medical service. We will discuss with the hospital physician. 01/17/21 21:11 Dr Savage to admit to [facility] 01/17/21 21:44 Nursing team reports to myself that after they spoke to patient's granddaughter, they found out that the patient is on methadone, and also reportedly consumed benzodiazepines as well as methamphetamine sometime earlier on today. Repeat Accu-Chek is 53. As needed orders are in place for dextrose as well as D10 drip. ED Medical Decision Making - Lab Data Result diagrams: 01/17/21 17:09 01/17/21 17:09 Vital Signs 01/17/21 01/17/21 16:05 17:45 Temperature 97.8 F Pulse Rate 68 92 H Respiratory 15 16 Rate Blood Pressure 124/71 137/68 [Right] O2 Sat by Pulse 95 98 Oximetry Lab Results 01/17/21 01/17/21 01/17/21 Range/Units 15:53 16:16 16:17 WBC (4.5-11.0) K/mm3 RBC (3.65-5.03) M/mm3 Hgb (10.1-14.3) gm/dl Hct (30.3-42.9) % MCV (79-97) fl MCH (28-32) pg MCHC (30-34) % RDW (13.2-15.2) % Plt Count (140-440) K/mm3 Lymph % (Auto) [place] % (Auto) Eos % (Auto) Baso % (Auto) Lymph # (Auto) [place] # (Auto) Eos # (Auto) Baso # (Auto) Seg Neutrophils % Seg Neutrophils # PT (12.2-14.9) Sec. INR (0.87-1.13) APTT (24.2-36.6) Sec. ABG pH 7.395 (7.320-7.450) POC ABG pCO2 41.5 (32.0-48.0) mmHg POC ABG pO2 111.5 H (83-108) mmHg POC ABG HCO3 24.8 ABG O2 Saturation 98.4 (0-100) POC ABG Base Excess -0.1 ABG Hemoglobin 14.3 (12.0-17.5) ABG Oxyhemoglobin 94.4 (94-98) ABG Methemoglobin 0.3 (0.0-1.5) ABG Sodium 139.4 (136.0-145.0) mmol/L ABG Potassium 3.0 L (3.40-4.50) mmol/L ABG Chloride 105.0 (98-107) mmol/L ABG Glucose 175 H (65-95) mg/dL Carboxyhemoglobin 3.8 H (0.5-1.5) FiO2 % 21.0 Sodium (137-145) mmol/L Potassium (3.6-5.0) mmol/L Chloride (98-107) mmol/L Carbon Dioxide (22-30) mmol/L Anion Gap mmol/L BUN (7-17) mg/dL Creatinine (0.6-1.2) mg/dL Estimated GFR ml/min BUN/Creatinine Ratio % Glucose (65-100) mg/dL POC Glucose 66 L 154 H (70-105) mg/dL Lactic Acid (0.7-2.0) mmol/L Calcium (8.4-10.2) mg/dL Magnesium (1.7-2.3) mg/dL Total Bilirubin (0.1-1.2) mg/dL AST (5-40) units/L ALT (7-56) units/L Alkaline Phosphatase (35-129) units/L Ammonia (25-60) umol/L Total Creatine Kinase (30-135) units/L Troponin T (0.00-0.029) ng/mL NT-Pro-B Natriuret Pep (0-900) pg/mL Total Protein (6.3-8.2) g/dL Albumin (3.9-5) g/dL Albumin/Globulin Ratio % TSH (0.270-4.200) mlU/mL Arterial Blood Glucose 175 H (65-95) mg/dL Arterial Blood Ionized Calcium 4.7 (4.6-5.3) mg/dL Salicylates (2.8-20.0) mg/dL Acetaminophen (10.0-30.0) ug/mL Plasma/Serum Alcohol (0-0.07) % 01/17/21 01/17/21 01/17/21 Range/Units 17:09 17:09 17:09 WBC 10.2 (4.5-11.0) K/mm3 RBC 4.60 (3.65-5.03) M/mm3 Hgb 14.7 H (10.1-14.3) gm/dl Hct 45.2 H (30.3-42.9) % MCV 98 H (79-97) fl MCH 32 (28-32) pg MCHC 33 (30-34) % RDW 14.7 (13.2-15.2) % Plt Count 219 (140-440) K/mm3 Lymph % (Auto) Program Services Assistant [place] % (Auto) Program Services Assistant Eos % (Auto) Program Services Assistant Baso % (Auto) Program Services Assistant Lymph # (Auto) Program Services Assistant [place] # (Auto) Program Services Assistant Eos # (Auto) Program Services Assistant Baso # (Auto) Program Services Assistant Seg Neutrophils % Program Services Assistant Seg Neutrophils # Program Services Assistant PT 14.2 (12.2-14.9) Sec. INR 1.05 (0.87-1.13) APTT 33.5 (24.2-36.6) Sec. ABG pH (7.320-7.450) POC ABG pCO2 (32.0-48.0) mmHg POC ABG pO2 (83-108) mmHg POC ABG HCO3 ABG O2 Saturation (0-100) POC ABG Base Excess ABG Hemoglobin (12.0-17.5) ABG Oxyhemoglobin (94-98) ABG Methemoglobin (0.0-1.5) ABG Sodium (136.0-145.0) mmol/L ABG Potassium (3.40-4.50) mmol/L ABG Chloride (98-107) mmol/L ABG Glucose (65-95) mg/dL Carboxyhemoglobin (0.5-1.5) FiO2 % Sodium 144 (137-145) mmol/L Potassium 3.5 L (3.6-5.0) mmol/L Chloride 106.1 (98-107) mmol/L Carbon Dioxide 28 (22-30) mmol/L Anion Gap 13 mmol/L BUN 12 (7-17) mg/dL Creatinine 0.8 (0.6-1.2) mg/dL Estimated GFR > 60 ml/min BUN/Creatinine Ratio 15 % Glucose 64 L (65-100) mg/dL POC Glucose (70-105) mg/dL Lactic Acid (0.7-2.0) mmol/L Calcium 9.5 (8.4-10.2) mg/dL Magnesium 2.20 (1.7-2.3) mg/dL Total Bilirubin 0.70 (0.1-1.2) mg/dL AST 15 (5-40) units/L ALT 9 (7-56) units/L Alkaline Phosphatase 96 (35-129) units/L Ammonia (25-60) umol/L Total Creatine Kinase 107 (30-135) units/L Troponin T < 0.010 (0.00-0.029) ng/mL NT-Pro-B Natriuret Pep 72.91 (0-900) pg/mL Total Protein 6.4 (6.3-8.2) g/dL Albumin 3.8 L (3.9-5) g/dL Albumin/Globulin Ratio 1.5 % TSH (0.270-4.200) mlU/mL Arterial Blood Glucose (65-95) mg/dL Arterial Blood Ionized Calcium (4.6-5.3) mg/dL Salicylates (2.8-20.0) mg/dL Acetaminophen (10.0-30.0) ug/mL Plasma/Serum Alcohol (0-0.07) % 01/17/21 01/17/21 01/17/21 Range/Units 17:09 17:09 17:09 WBC (4.5-11.0) K/mm3 RBC (3.65-5.03) M/mm3 Hgb (10.1-14.3) gm/dl Hct (30.3-42.9) % MCV (79-97) fl MCH (28-32) pg MCHC (30-34) % RDW (13.2-15.2) % Plt Count (140-440) K/mm3 Lymph % (Auto) [place] % (Auto) Eos % (Auto) Baso % (Auto) Lymph # (Auto) [place] # (Auto) Eos # (Auto) Baso # (Auto) Seg Neutrophils % Seg Neutrophils # PT (12.2-14.9) Sec. INR (0.87-1.13) APTT (24.2-36.6) Sec. ABG pH (7.320-7.450) POC ABG pCO2 (32.0-48.0) mmHg POC ABG pO2 (83-108) mmHg POC ABG HCO3 ABG O2 Saturation (0-100) POC ABG Base Excess ABG Hemoglobin (12.0-17.5) ABG Oxyhemoglobin (94-98) ABG Methemoglobin (0.0-1.5) ABG Sodium (136.0-145.0) mmol/L ABG Potassium (3.40-4.50) mmol/L ABG Chloride (98-107) mmol/L ABG Glucose (65-95) mg/dL Carboxyhemoglobin (0.5-1.5) FiO2 % Sodium (137-145) mmol/L Potassium (3.6-5.0) mmol/L Chloride (98-107) mmol/L Carbon Dioxide (22-30) mmol/L Anion Gap mmol/L BUN (7-17) mg/dL Creatinine (0.6-1.2) mg/dL Estimated GFR ml/min BUN/Creatinine Ratio % Glucose (65-100) mg/dL POC Glucose (70-105) mg/dL Lactic Acid 1.50 (0.7-2.0) mmol/L Calcium (8.4-10.2) mg/dL Magnesium (1.7-2.3) mg/dL Total Bilirubin (0.1-1.2) mg/dL AST (5-40) units/L ALT (7-56) units/L Alkaline Phosphatase (35-129) units/L Ammonia 66.0 H (25-60) umol/L Total Creatine Kinase (30-135) units/L Troponin T (0.00-0.029) ng/mL NT-Pro-B Natriuret Pep (0-900) pg/mL Total Protein (6.3-8.2) g/dL Albumin (3.9-5) g/dL Albumin/Globulin Ratio % TSH 5.130 H (0.270-4.200) mlU/mL Arterial Blood Glucose (65-95) mg/dL Arterial Blood Ionized Calcium (4.6-5.3) mg/dL Salicylates (2.8-20.0) mg/dL Acetaminophen (10.0-30.0) ug/mL Plasma/Serum Alcohol (0-0.07) % 01/17/21 01/17/21 01/17/21 Range/Units 17:09 17:09 17:09 WBC (4.5-11.0) K/mm3 RBC (3.65-5.03) M/mm3 Hgb (10.1-14.3) gm/dl Hct (30.3-42.9) % MCV (79-97) fl MCH (28-32) pg MCHC (30-34) % RDW (13.2-15.2) % Plt Count (140-440) K/mm3 Lymph % (Auto) [place] % (Auto) Eos % (Auto) Baso % (Auto) Lymph # (Auto) [place] # (Auto) Eos # (Auto) Baso # (Auto) Seg Neutrophils % Seg Neutrophils # PT (12.2-14.9) Sec. INR (0.87-1.13) APTT (24.2-36.6) Sec. ABG pH (7.320-7.450) POC ABG pCO2 (32.0-48.0) mmHg POC ABG pO2 (83-108) mmHg POC ABG HCO3 ABG O2 Saturation (0-100) POC ABG Base Excess ABG Hemoglobin (12.0-17.5) ABG Oxyhemoglobin (94-98) ABG Methemoglobin (0.0-1.5) ABG Sodium (136.0-145.0) mmol/L ABG Potassium (3.40-4.50) mmol/L ABG Chloride (98-107) mmol/L ABG Glucose (65-95) mg/dL Carboxyhemoglobin (0.5-1.5) FiO2 % Sodium (137-145) mmol/L Potassium (3.6-5.0) mmol/L Chloride (98-107) mmol/L Carbon Dioxide (22-30) mmol/L Anion Gap mmol/L BUN (7-17) mg/dL Creatinine (0.6-1.2) mg/dL Estimated GFR ml/min BUN/Creatinine Ratio % Glucose (65-100) mg/dL POC Glucose (70-105) mg/dL Lactic Acid (0.7-2.0) mmol/L Calcium (8.4-10.2) mg/dL Magnesium (1.7-2.3) mg/dL Total Bilirubin (0.1-1.2) mg/dL AST (5-40) units/L ALT (7-56) units/L Alkaline Phosphatase (35-129) units/L Ammonia (25-60) umol/L Total Creatine Kinase (30-135) units/L Troponin T (0.00-0.029) ng/mL NT-Pro-B Natriuret Pep (0-900) pg/mL Total Protein (6.3-8.2) g/dL Albumin (3.9-5) g/dL Albumin/Globulin Ratio % TSH (0.270-4.200) mlU/mL Arterial Blood Glucose (65-95) mg/dL Arterial Blood Ionized Calcium (4.6-5.3) mg/dL Salicylates < 0.3 L (2.8-20.0) mg/dL Acetaminophen 5.0 L (10.0-30.0) ug/mL Plasma/Serum Alcohol < 0.01 (0-0.07) % - EKG Data -: EKG Interpreted by Ma EKG shows normal: sinus rhythm Rate: normal - EKG Data 01/17/21 21:44 EKG interpreted at 21: 39 Sinus rhythm, 74 bpm. Normal axis, normal intervals, poor R wave progression, l ow voltage, normal P wave axis. Abnormal EKG. Not a STEMI. No prior for comparison. - Radiology Data Radiology results: pending, report reviewed, image reviewed CT head/brain wo con INDICATION: Altered Mental Status. TECHNIQUE: All CT scans at this location are performed using CT dose reduction for ALARA by means of automated exposure control. COMPARISON: None available. FINDINGS: There is no evidence of hemorrhage, hydrocephalus, brain edema, or mass effect/mass lesion. There is a chronic lacunar infarct in the right gangliocapsular region. The included paranasal sinuses and mastoid air cells are clear. The orbits appear unremarkable. IMPRESSION: 1. No acute intracranial abnormality. Signer Name: Asim Mendoza MD Signed: 01/17/2021 5:58 PM Workstation Name: [id number] 1 VIEW 01/17/2021 6:54 PM INDICATION / CLINICAL INFORMATION: hypoxia ams. COMPARISON: None available. FINDINGS: SUPPORT DEVICES: None. HEART / MEDIASTINUM: No significant abnormality. LUNGS / PLEURA: There are low lung volumes with bibasilar opacities No pneumothorax. ADDITIONAL FINDINGS: No significant additional findings. IMPRESSION: 1. Bibasilar opacities which may be secondary to hypoventilatory changes; however, infectious process should be considered in the appropriate clinical setting. Signer Name: Troy Almodovar DO Signed: 01/17/2021 7:14 PM Workstation Name: [id number] Critical Care Time: Yes Critical care time in (mins) excluding proc time.: 35 Critical care attestation.: If time is entered above; I have spent that time in minutes in the direct care of this critically ill patient, excluding procedure time. ED Disposition Clinical Impression: Acute encephalopathy, Hypoglycemia, Hyperammonemia, Obesity, Suspected 2019 novel coronavirus infection Disposition: ADMITTED INPATIENT Is pt being admited?: Yes Condition: Fair
--- NOTE | 2021-01-17 21:36 | History and Physical Report ---
History of Present Illness Date of examination: 01/17/21 Date of admission: 01/17/21 21:11 Chief complaint: Altered mental status History of present illness: This is a 55-year-old female n patient brought to the hospital by EMS with a complaint of altered mental status. The ED record, patient was was found in the parking lot with altered mental status. EMS reported the patient was sleepy but arousable in the field, and had a negative stroke scale. They also reported normal Accu-Chek. The ED record, initially in the emergency room, the patient is sleepy but arousable to noxious stimuli. She is protecting her airway, but initially is somewhat hypoxic. Blood sugar check was 66. CT of the head doneno acute finding. Urine drug screen donepositive for amphetamine, benzo, methadone. Per patient report also she was given Narcan in the ED. Past History Past Medical History: hyperlipidemia, other (History of mental problems) Past Surgical History: No surgical history Social history: no significant social history Family history: no significant family history Medications and Allergies Allergies Allergy/AdvReac Type Severity Reaction Status Date / Time aspirin Allergy Swelling Verified 07/30/14 11:44 Penicillins Allergy Swelling Verified 07/30/14 11:44 tramadol HCl [From Ultram] AdvReac Vomiting Verified 07/30/14 11:44 Home Medications Medication Instructions Recorded Confirmed Last Taken Type Citalopram Hydrobromide [celeXA] 20 mg PO QDAY 07/30/14 01/07/19 01/06/19 History ARIPiprazole [Abilify TAB] 5 mg PO DAILY 01/07/19 01/07/19 01/06/19 History AtorvaSTATin [Lipitor] 40 mg PO QHS 01/07/19 01/07/19 01/06/19 History Cariprazine HCl [Vraylar] 1.5 mg PO QDAY 01/07/19 01/07/19 01/06/19 History Clindamycin [Clindamycin CAP] 300 mg PO Q8H #21 cap 01/07/19 Unknown Rx Clindamycin [Clindamycin CAP] 600 mg PO BID 01/07/19 01/07/19 01/06/19 History Gabapentin [Neurontin] 300 mg PO Q8HR 01/07/19 01/07/19 01/06/19 History Levothyroxine [Synthroid] 75 mcg PO QAM 01/07/19 01/07/19 01/06/19 History Lidocaine [Lidocaine OINT] 30 gm TP 2XWHS 01/07/19 01/07/19 01/06/19 History Morphine Sulfate [Ms Contin] 60 mg PO Q12H 01/07/19 01/07/19 01/03/19 History Pregabalin [Lyrica] 100 mg PO BID 01/07/19 01/07/19 01/06/19 History allopurinoL [Zyloprim] 300 mg PO QDAY 01/07/19 01/07/19 01/06/19 History methOCARBAMOL [Robaxin TAB] 500 mg PO Q8HR PRN #20 tablet 01/07/19 Unknown Rx oxyCODONE /ACETAMINOPHEN [Percocet 1 tab PO Q8H 01/07/19 01/07/19 01/05/19 History 5/325] Active Meds: Active Medications Dextrose (Dextrose 50% In Water (25gm) 50 Ml Syringe) 50 ml IV Q30MIN PRN; P rotocol PRN Reason: Hypoglycemia Last Admin: 01/17/21 16:08 Dose: 50 ml Documented by: Haloperidol Lactate (Haloperidol Lactate 5 Mg/1 Ml Inj) 5 mg IM Q6HR PRN PRN Reason: Agitation Last Admin: 01/17/21 17:19 Dose: 5 mg Documented by: Potassium Chloride 40 meq/ (Dextrose) 1,020 mls @ 100 mls/hr IV DIRECT PACHECO Lactulose (Lactulose 20 Gm/30 Ml Oral Liqd) 20 gm PO QHS PRN PRN Reason: Constipation Lorazepam (Lorazepam 2 Mg/Ml Vial) 2 mg IM Q4HR PRN PRN Reason: Agitation Last Admin: 01/17/21 17:19 Dose: 2 mg Documented by: Naloxone HCl (Naloxone 0.4 Mg/1 Ml Inj) 0.1 mg IV Q2MIN PRN PRN Reason: Res Rate </= 8 or 02 SAT < 92% Review of Systems Constitutional: weakness, lethargy Ears, nose, mouth and throat: no epistaxis, no bleeding gums Cardiovascular: no high blood pressure Gastrointestinal: no melena, no hematochezia Rectal: no itching, no hemorrhoids Musculoskeletal: muscle weakness Integumentary: no pruritis, no redness, no wounds Psychiatric: disorientation, confusion Hematologic/Lymphatic: no easy bruising, no easy bleeding Allergic/Immunologic: no urticaria Exam - Constitutional Vitals: Temp Pulse Resp BP Pulse Ox 97.8 F 63 11 L 108/67 96 01/17/21 16:05 01/17/21 21:16 01/17/21 21:16 01/17/21 21:16 01/17/21 21:16 General appearance: Present: mild distress, well-nourished - EENT Eyes: Present: PERRL ENT: hearing intact, clear oral mucosa - Neck Neck: Present: supple, normal ROM - Respiratory Respiratory effort: normal Respiratory: bilateral: CTA - Cardiovascular Heart Sounds: Present: S1 & S2. Absent: rub, click - Extremities Extremities: pulses symmetrical, No edema Peripheral Pulses: within normal limits - Abdominal General gastrointestinal: Present: soft, non-tender, non-distended, normal bowel sounds Female genitourinary: Present: normal - Integumentary Integumentary: Present: clear, warm, dry - Musculoskeletal Musculoskeletal: strength equal bilaterally, generalized weakness - Psychiatric Psychiatric: other (Patient came with altered mental statuswas given pain patient shows some agitation) - Neurologic Neurologic: CNII-XII intact, moves all extremities - Allied Health Allied health notes reviewed: nursing HEART Score - HEART Score Troponin: Troponin T < 0.010 ng/mL (0.00-0.029) 01/17/21 17:09 Results - Labs CBC & Chem 7: 01/17/21 17:09 01/17/21 17:09 Labs: Abnormal lab results 01/17/21 01/17/21 01/17/21 Range/Units 15:53 16:16 16:17 Hgb (10.1-14.3) gm/dl Hct (30.3-42.9) % MCV (79-97) fl POC ABG pO2 111.5 H (83-108) mmHg ABG Potassium 3.0 L (3.40-4.50) mmol/L ABG Glucose 175 H (65-95) mg/dL Carboxyhemoglobin 3.8 H (0.5-1.5) Potassium (3.6-5.0) mmol/L Glucose (65-100) mg/dL POC Glucose 66 L 154 H (70-105) mg/dL Ammonia (25-60) umol/L Albumin (3.9-5) g/dL TSH (0.270-4.200) mlU/mL Arterial Blood Glucose 175 H (65-95) mg/dL Salicylates (2.8-20.0) mg/dL Acetaminophen (10.0-30.0) ug/mL 01/17/21 01/17/21 01/17/21 Range/Units 17:09 17:09 17:09 Hgb 14.7 H (10.1-14.3) gm/dl Hct 45.2 H (30.3-42.9) % MCV 98 H (79-97) fl POC ABG pO2 (83-108) mmHg ABG Potassium (3.40-4.50) mmol/L ABG Glucose (65-95) mg/dL Carboxyhemoglobin (0.5-1.5) Potassium 3.5 L (3.6-5.0) mmol/L Glucose 64 L (65-100) mg/dL POC Glucose (70-105) mg/dL Ammonia 66.0 H (25-60) umol/L Albumin 3.8 L (3.9-5) g/dL TSH (0.270-4.200) mlU/mL Arterial Blood Glucose (65-95) mg/dL Salicylates (2.8-20.0) mg/dL Acetaminophen (10.0-30.0) ug/mL 01/17/21 01/17/21 01/17/21 Range/Units 17:09 17:09 17:09 Hgb (10.1-14.3) gm/dl Hct (30.3-42.9) % MCV (79-97) fl POC ABG pO2 (83-108) mmHg ABG Potassium (3.40-4.50) mmol/L ABG Glucose (65-95) mg/dL Carboxyhemoglobin (0.5-1.5) Potassium (3.6-5.0) mmol/L Glucose (65-100) mg/dL POC Glucose (70-105) mg/dL Ammonia (25-60) umol/L Albumin (3.9-5) g/dL TSH 5.130 H (0.270-4.200) mlU/mL Arterial Blood Glucose (65-95) mg/dL Salicylates < 0.3 L (2.8-20.0) mg/dL Acetaminophen 5.0 L (10.0-30.0) ug/mL 01/17/21 Range/Units 21:26 Hgb (10.1-14.3) gm/dl Hct (30.3-42.9) % MCV (79-97) fl POC ABG pO2 (83-108) mmHg ABG Potassium (3.40-4.50) mmol/L ABG Glucose (65-95) mg/dL Carboxyhemoglobin (0.5-1.5) Potassium (3.6-5.0) mmol/L Glucose (65-100) mg/dL POC Glucose 53 L (70-105) mg/dL Ammonia (25-60) umol/L Albumin (3.9-5) g/dL TSH (0.270-4.200) mlU/mL Arterial Blood Glucose (65-95) mg/dL Salicylates (2.8-20.0) mg/dL Acetaminophen (10.0-30.0) ug/mL Assessment and Plan - Patient Problems (1) Acute encephalopathy Current Visit: Yes Status: Acute Plan to address problem: Questionable cause-likely secondary to multisubstance use/overdose Urine drug screen positive for amphetamine, benzo and methadone Will consult patient to avoid substance use when alert and oriented Aspiration and fall precaution at all times CT of the headno acute intracranial process Follow-up with a.m. labs (2) Suspected 2019 novel coronavirus infection Current Visit: Yes Status: Acute Plan to address problem: Covid test ordered Continue with airborne and contact isolation Monitor inflammatory markers Empiric antibiotics and oxygen supplement as needed Ascorbic acid, zinc sulfate, and vitamin D supplement (3) TSH elevation Current Visit: Yes Status: Acute Plan to address problem: Thyroid stimulating hormone elevated- check T3-T4 Continue Synthroid (4) Obesity Current Visit: Yes Status: Acute Plan to address problem: We discussed lifestyle modification including healthy diet with regular exercise when patient is more alert and oriented (5) Urinary tract infection Current Visit: Yes Status: Acute Plan to address problem: Urine culture Start empiric antibiotic Rocephin (6) DVT prophylaxis Current Visit: Yes Status: Acute Plan to address problem: Subcutaneous Lovenox
[2021-01-17] MEDS ORDERED: MAGNESIUM HYDROXIDE (MOM) ORAL LIQD UDC PO PRN (21:53)
[2021-01-17] MEDS ORDERED: SENNOSIDES 8.6 MG TAB PO PRN (21:53)
[2021-01-17] MEDS ORDERED: ONDANSETRON 4 MG/2 ML INJ IV PRN (21:53)
[2021-01-17] MEDS ORDERED: ACETAMINOPHEN 325 MG TAB PO PRN (21:53)
[2021-01-17] MEDS ORDERED: ALUM-MAG HYDROXIDE-SIMETHICONE 200-200-20MG/5ML ORAL LIQD 30 ML PO PRN (21:53)
[2021-01-17] MEDS ORDERED: oxyCODONE /ACETAMINOPHEN 5-325MG TAB PO PRN (21:53)
[2021-01-17] MEDS ORDERED: METOCLOPRAMIDE 10 MG/2 ML INJ IV PRN (21:53)
[2021-01-17] MEDS ORDERED: GABAPENTIN 300 MG CAP PO PRN (21:57)
[2021-01-17] MEDS ORDERED: D5W/0.9% NACL 1,000 ML IV SCH (22:00)
[2021-01-17] MEDS ORDERED: FAMOTIDINE 20 MG/2 ML INJ IV SCH (22:00)
[2021-01-17 23:07] LABS: Amphetamine Screen,Urine PRESUMPTIVE POSITIVE
[2021-01-17 23:12] LABS: Bacteria,Urine 4+ /HPF (Negative); Bilirubin,Urine NEG (Negative); Blood,Urine LG (Negative); Color,Urine Amber (Yellow); Hyaline Casts,Urine 10 /LPF; Mucus,Urine 3+ /HPF; Urobilinogen,Urine < 2.0 mg/dL (<2.0)
[2021-01-17 23:30] LABS: Benzodiazepines Screen,Urine PRESUMPTIVE POSITIVE; Cannabinoid Screen,Urine PRESUMPTIVE NEGATIVE; Cocaine Screen,Urine PRESUMPTIVE NEGATIVE; Methadone Screen,Urine PRESUMPTIVE POSITIVE; Opiate Screen,Urine PRESUMPTIVE NEGATIVE
[2021-01-18] MEDS: ENOXAPARIN 40 MG/0.4 ML INJ SUB-Q SCH ×2 (00:03→10:16)
[2021-01-18 05:49] LABS: Basophils % (Auto) 0.1 % (0.0-1.8); Hematocrit 44.5 % (30.3-42.9); Hemoglobin 14.8 gm/dl (10.1-14.3); Lymphocytes # (Auto) 0.8 K/mm3 (1.2-5.4); Mean Corpuscular HGB Conc 33 % (30-34); Mean Corpuscular Volume 97 fl (79-97); Monocytes # (Auto) 0.2 K/mm3 (0.0-0.8); Monocytes % (Auto) 2.4 % (0.0-7.3); Platelet Count 194 K/mm3 (140-440); Red Cell Distribution Width 14.2 % (13.2-15.2)
[2021-01-18 05:54] LABS: Alanine Aminotransferase 9 units/L (7-56); Albumin 3.5 g/dL (3.9-5); Blood Urea Nitrogen 11 mg/dL (7-17); Calcium 9.1 mg/dL (8.4-10.2); Hemolysis Index 62
[2021-01-18 05:55] LABS: BUN/Creatinine Ratio 18
[2021-01-18] MEDS ORDERED: AZITHROMYCIN/NS 500 MG/250 ML 500 MG/250 ML BAG IV SCH (06:00)
[2021-01-18] MEDS ORDERED: cefTRIAXone/NS 1 GM/50 ML 1 GM/50 ML BAG IV SCH (06:00)
[2021-01-18] MEDS ORDERED: LEVOTHYROXINE 75 MCG TAB PO SCH (06:00)
[2021-01-18] MEDS ORDERED: CITALOPRAM 20 MG TAB PO SCH (10:00)
[2021-01-18] MEDS ORDERED: CHOLECALCIFEROL (VIT D3) 1000 UNIT (25 mcg) TAB PO SCH (10:00)
[2021-01-18] MEDS ORDERED: FAMOTIDINE 20 MG TAB PO SCH (10:00)
[2021-01-18] MEDS ORDERED: ASCORBIC ACID 500 MG TAB PO SCH (10:00)
[2021-01-18] MEDS ORDERED: allopurinoL 300 MG TAB PO SCH (10:00)
[2021-01-18] MEDS ORDERED: ARIPiprazole 5 MG TAB PO SCH (10:00)
[2021-01-18] MEDS ORDERED: ZINC SULFATE 220 MG CAP PO SCH (10:00)
--- NOTE | 2021-01-18 10:22 | Electrocardiograph Report ---
[facility] Test Date: 2021-01-17 Test Time: 21:39:30 Pat Name: EMILIA SALAS Department: Room: [place] [address] Gender: F [employer] Tech: : 1965 Requested By: YADI JETT Order Number: [id number] Reading MD: Dereje Liu Measurements Intervals [place] Rate: 74 P: 55 NC: 164 QRS: 57 QRSD: 76 T: 37 QT: 377 QTc: 418 Interpretive Statements Sinus rhythm Low voltage, precordial leads No previous ECG available for comparison Electronically Signed On 01-18-2021 10:21:28 EDT by Dereje Liu
--- NOTE | 2021-01-18 11:19 | Consultation ---
History of Present Illness - Reason for Consult Consult date: 01/18/21 Reason for consult: AMS - Chief Complaint Chief complaint: Altered mental status - History of Present Psychiatric Illness Per ED Note: The patient is a 55-year-old female. She is not known to myself previously. She is brought to the hospital by EMS with a complaint of altered mental status as per EMS. EMS reported that the patient was in a fast food parking lot for at least 3 hours, although her exact last known well time is not known. EMS reported the patient was sleepy but arousable in the field, and had a negative stroke scale. They also reported normal Accu-Chek. Initially in the emergency room, the patient is sleepy but arousable to noxious stimuli. She is protecting her airway, but initially is somewhat hypoxic. Gabi Jacobson is a 55 year old with a history Schizophrenia, Poly substance use and Bipolar disorder who presents to the ED with altered mental status. In my interview with the patient, she is alert and orient x 3 and calm however, she is unable to recall any incident that resulted to this admission. She reports that she sees a psychiatrist every six weeks and also goes to a Methadone clinic daily; she is currently on Methadone 90mg daily for opioids addiction. The patient is focused on discharge. She denies any current suicidal/homicidal ideation and denies hallucinations. PAST PSYCHIATRIC HISTORY: Diagnoses: Schizophrenia, Poly substance use and Bipolar Suicide attempts or Self-harm behavior: Denies Prior psychiatric hospitalizations: Yes Substance Abuse history: methamphetamine, Opioids Previous psychiatric medications tried:Currently on Vraylar 15mg po daily Outpatient treatment:unknown PAST MEDICAL HISTORY: None reported or document Family Psychiatric History: None reported or documented SOCIAL HISTORY Marital Status: Single Living Arrangements: Lives alone Employment Status: unknown Access to guns/weapons: Denies Education:10th Grade History of Abuse:Denies Legal History: Denies REVIEW OF SYSTEMS Constitutional: Negative for weight loss ENT: Negative for stridor Respiratory: Negative for cough or hemoptysis All other systems reviewed and are negative MENTAL STATUS EXAMINATION General Appearance and Behavior: Age appropriate, good hygiene, wearing appropriate clothes. Cooperation: Cooperative Psychomotor Behavior: Psychomotor normal Mood:"Ok" Affect and affective range: congruent with stated mood Thought Process: Goal Directed Thought Content: Not Suicidal Speech: Normal volume, Regular rate and rhythm, Suicidal Ideation: Denies Homicidal Ideation: Denies Hallucinations: Denies Delusions: None elicited Impulse Control: Unimpaired Insight and Judgment: Limited, poor judgment Memory: Normal Attention:Attentive Orientation: alert and oriented Assessment and Plan (1) (2) Current Visit: Yes Status: Acute DC 1013 The patient to comply with previously prescribed medications Risks, benefits and alternatives of medications discussed with the patient, questions answered and consent obtained from patient. PSYCHOTHERAPY: Supportive psychotherapy provided MEDICAL: Per primary team DELIRIUM PRECAUTIONS: Please re-orient patient frequently, keep lights on during the day, and minimize benzodiazepines and opiates as these medications could worsen patient's confusion. SHOE RECONDITIONER: Defer to primary DISPOSITION: Do not recommend acute inpatient psychiatric hospitalization at this time. The patient understands that if suicidal/homicidal ideation or any endangering thoughts/behaviors arise, he should seek emergent assistance including but not limited to crisis hotline and emergency room. Follow up with outpatient psychiatrist with 7- 14 days of discharge. Gmat Instructor will provide resources. FOLLOW-UP: Will sign off Please contact with any questions and/or concerns. Medications and Allergies Allergies Allergy/AdvReac Type Severity Reaction Status Date / Time aspirin Allergy Swelling Verified 07/30/14 11:44 Penicillins Allergy Swelling Verified 07/30/14 11:44 tramadol HCl [From Ultram] AdvReac Vomiting Verified 07/30/14 11:44 Home Medications Medication Instructions Recorded Confirmed Last Taken Type Citalopram Hydrobromide [celeXA] 20 mg PO QDAY 07/30/14 01/07/19 01/06/19 History ARIPiprazole [Abilify TAB] 5 mg PO DAILY 01/07/19 01/07/19 01/06/19 History AtorvaSTATin [Lipitor] 40 mg PO QHS 01/07/19 01/07/19 01/06/19 History Cariprazine HCl [Vraylar] 1.5 mg PO QDAY 01/07/19 01/07/19 01/06/19 History Clindamycin [Clindamycin CAP] 300 mg PO Q8H #21 cap 01/07/19 Unknown Rx Clindamycin [Clindamycin CAP] 600 mg PO BID 01/07/19 01/07/19 01/06/19 History Gabapentin [Neurontin] 300 mg PO Q8HR 01/07/19 01/07/19 01/06/19 History Levothyroxine [Synthroid] 75 mcg PO QAM 01/07/19 01/07/19 01/06/19 History Lidocaine [Lidocaine OINT] 30 gm TP 2XWHS 01/07/19 01/07/19 01/06/19 History Morphine Sulfate [Ms Contin] 60 mg PO Q12H 01/07/19 01/07/19 01/03/19 History Pregabalin [Lyrica] 100 mg PO BID 01/07/19 01/07/19 01/06/19 History allopurinoL [Zyloprim] 300 mg PO QDAY 01/07/19 01/07/19 01/06/19 History methOCARBAMOL [Robaxin TAB] 500 mg PO Q8HR PRN #20 tablet 01/07/19 Unknown Rx oxyCODONE /ACETAMINOPHEN [Percocet 1 tab PO Q8H 01/07/19 01/07/19 01/05/19 History 5/325] Active Meds: Active Medications Acetaminophen (Acetaminophen 325 Mg Tab) 650 mg PO Q4H PRN PRN Reason: Pain MILD(1-3)/Fever >100.5/GAMEZ Al Hydrox/Mg Hydrox/Simethicone (Alum-Mag Hydroxide-Simethicone [phone]/5ml Oral Liqd 30 Ml) 30 ml PO Q4H PRN PRN Reason: Indigestion Allopurinol (Allopurinol 300 Mg Tab) 300 mg PO QDAY [facility] Last Admin: 01/18/21 10:16 Dose: Not Given Documented by: Aripiprazole (Aripiprazole 5 Mg Tab) 5 mg PO DAILY [facility] Last Admin: 01/18/21 10:16 Dose: Not Given Documented by: Ascorbic Acid (Ascorbic Acid 500 Mg Tab) 500 mg PO QDAY [facility] Last Admin: 01/18/21 10:16 Dose: Not Given Documented by: Atorvastatin Calcium (Atorvastatin 40 Mg Tab) 40 mg PO QHS [facility] Last Admin: 01/18/21 00:05 Dose: Not Given Documented by: Cholecalciferol (Cholecalciferol (Vit D3) 1000 Unit (25 Mcg) Tab) 1,000 unit PO QDAY [facility] Last Admin: 01/18/21 10:16 Dose: Not Given Documented by: Citalopram Hydrobromide (Citalopram 20 Mg Tab) 20 mg PO QDAY [facility] Last Admin: 01/18/21 10:16 Dose: Not Given Documented by: Dextrose (Dextrose 50% In Water (25gm) 50 Ml Syringe) 50 ml IV Q30MIN PRN; Protocol PRN Reason: Hypoglycemia Last Admin: 01/17/21 22:08 Dose: 50 ml Documented by: Enoxaparin Sodium (Enoxaparin 40 Mg/0.4 Ml Inj) 40 mg SUB-Q QDAY [facility] Last Admin: 01/18/21 10:16 Dose: Not Given Documented by: Famotidine (Famotidine 20 Mg Tab) 20 mg PO BID [facility] Last Admin: 01/18/21 10:16 Dose: Not Given Documented by: Gabapentin (Gabapentin 300 Mg Cap) 300 mg PO Q8H PRN PRN Reason: Pain, Moderate (4-6) Haloperidol Lactate (Haloperidol Lactate 5 Mg/1 Ml Inj) 5 mg IM Q6HR PRN PRN Reason: Agitation Last Admin: 01/17/21 17:19 Dose: 5 mg Documented by: Potassium Chloride 40 meq/ (Dextrose) 1,020 mls @ 100 mls/hr IV DIRECT PACHECO Last Admin: 01/18/21 06:51 Dose: 100 mls/hr Documented by: Ceftriaxone Sodium (Rocephin/Ns 1 Gm/50 Ml) 1 gm in 50 mls @ 100 mls/hr IV Q24H [facility]; Protocol Stop: 01/22/21 06:29 Last Admin: 01/18/21 05:34 Dose: 100 mls/hr Documented by: Azithromycin (Zithromax/Ns) 500 mg in 250 mls @ 250 mls/hr IV Q24H PACHECO Stop: 01/22/21 06:59 Last Admin: 01/18/21 05:54 Dose: 250 mls/hr Documented by: Lactulose (Lactulose 20 Gm/30 Ml Oral Liqd) 20 gm PO QHS PRN PRN Reason: Constipation Levothyroxine Sodium (Levothyroxine 75 Mcg Tab) 75 mcg PO QAM@0600 [facility] Last Admin: 01/18/21 06:04 Dose: Not Given Documented by: Lorazepam (Lorazepam 2 Mg/Ml Vial) 2 mg IM Q4HR PRN PRN Reason: Agitation Last Admin: 01/17/21 17:19 Dose: 2 mg Documented by: Magnesium Hydroxide (Magnesium Hydroxide (Mom) Oral Liqd Udc) 30 ml PO Q4H PRN PRN Reason: Constipation Metoclopramide HCl (Metoclopramide 10 Mg/2 Ml Inj) 10 mg IV Q6H PRN PRN Reason: Nausea And Vomiting Naloxone HCl (Naloxone 0.4 Mg/1 Ml Inj) 0.1 mg IV Q2MIN PRN PRN Reason: Res Rate </= 8 or 02 SAT < 92% Ondansetron HCl (Ondansetron 4 Mg/2 Ml Inj) 4 mg IV Q8H PRN PRN Reason: Nausea And Vomiting Oxycodone/Acetaminophen (Oxycodone /Acetaminophen 5-325mg Tab) 1 tab PO Q6H PRN PRN Reason: Pain, Moderate (4-6) Senna (Sennosides 8.6 Mg Tab) 8.6 mg PO Q12HR PRN PRN Reason: Constipation Sodium Chloride (Sodium Chloride 0.9% 10 Ml Flush Syringe) 10 ml IV BID [facility] Last Admin: 01/18/21 10:16 Dose: 10 ml Documented by: Zinc Sulfate (Zinc Sulfate 220 Mg Cap) 220 mg PO BID [facility] Last Admin: 01/18/21 10:16 Dose: Not Given Documented by: Mental Status Exam - Vital signs Last Vital Signs Temp 97.8 F 01/17/21 16:05 Pulse 57 L 01/18/21 11:00 Resp 10 L 01/18/21 11:00 BP 122/79 01/18/21 11:00 Pulse Ox 97 01/18/21 11:00 Results Result Diagrams: 01/18/21 04:57 01/18/21 04:57 Abnormal lab results 01/17/21 01/17/21 01/17/21 Range/Units 15:53 16:16 16:17 Hgb (10.1-14.3) gm/dl Hct (30.3-42.9) % MCV (79-97) fl Lymph % (Auto) (13.4-35.0) % Lymph # (Auto) (1.2-5.4) K/mm3 Seg Neutrophils % (40.0-70.0) % POC ABG pO2 111.5 H (83-108) mmHg ABG Potassium 3.0 L (3.40-4.50) mmol/L ABG Glucose 175 H (65-95) mg/dL Carboxyhemoglobin 3.8 H (0.5-1.5) Sodium (137-145) mmol/L Potassium (3.6-5.0) mmol/L Glucose (65-100) mg/dL POC Glucose 66 L 154 H (70-105) mg/dL Ammonia (25-60) umol/L Albumin (3.9-5) g/dL TSH (0.270-4.200) mlU/mL Arterial Blood Glucose 175 H (65-95) mg/dL Urine WBC (Auto) (0.0-6.0) /HPF Salicylates (2.8-20.0) mg/dL Acetaminophen (10.0-30.0) ug/mL 01/17/21 01/17/21 01/17/21 Range/Units 17: 17: 17:09 Hgb 14.7 H (10.1-14.3) gm/dl Hct 45.2 H (30.3-42.9) % MCV 98 H (79-97) fl Lymph % (Auto) (13.4-35.0) % Lymph # (Auto) (1.2-5.4) K/mm3 Seg Neutrophils % (40.0-70.0) % POC ABG pO2 (83-108) mmHg ABG Potassium (3.40-4.50) mmol/L ABG Glucose (65-95) mg/dL Carboxyhemoglobin (0.5-1.5) Sodium (137-145) mmol/L Potassium 3.5 L (3.6-5.0) mmol/L Glucose 64 L (65-100) mg/dL POC Glucose (70-105) mg/dL Ammonia 66.0 H (25-60) umol/L Albumin 3.8 L (3.9-5) g/dL TSH (0.270-4.200) mlU/mL Arterial Blood Glucose (65-95) mg/dL Urine WBC (Auto) (0.0-6.0) /HPF Salicylates (2.8-20.0) mg/dL Acetaminophen (10.0-30.0) ug/mL 01/17/21 01/17/21 01/17/21 Range/Units 17: 17:09 17:09 Hgb (10.1-14.3) gm/dl Hct (30.3-42.9) % MCV (79-97) fl Lymph % (Auto) (13.4-35.0) % Lymph # (Auto) (1.2-5.4) K/mm3 Seg Neutrophils % (40.0-70.0) % POC ABG pO2 (83-108) mmHg ABG Potassium (3.40-4.50) mmol/L ABG Glucose (65-95) mg/dL Carboxyhemoglobin (0.5-1.5) Sodium (137-145) mmol/L Potassium (3.6-5.0) mmol/L Glucose (65-100) mg/dL POC Glucose (70-105) mg/dL Ammonia (25-60) umol/L Albumin (3.9-5) g/dL TSH 5.130 H (0.270-4.200) mlU/mL Arterial Blood Glucose (65-95) mg/dL Urine WBC (Auto) (0.0-6.0) /HPF Salicylates < 0.3 L (2.8-20.0) mg/dL Acetaminophen 5.0 L (10.0-30.0) ug/mL 01/17/21 01/17/21 01/17/21 Range/Units 21:26 22:01 22:44 Hgb (10.1-14.3) gm/dl Hct (30.3-42.9) % MCV (79-97) fl Lymph % (Auto) (13.4-35.0) % Lymph # (Auto) (1.2-5.4) K/mm3 Seg Neutrophils % (40.0-70.0) % POC ABG pO2 (83-108) mmHg ABG Potassium (3.40-4.50) mmol/L ABG Glucose (65-95) mg/dL Carboxyhemoglobin (0.5-1.5) Sodium (137-145) mmol/L Potassium (3.6-5.0) mmol/L Glucose (65-100) mg/dL POC Glucose 53 L 64 L 107 H (70-105) mg/dL Ammonia (25-60) umol/L Albumin (3.9-5) g/dL TSH (0.270-4.200) mlU/mL Arterial Blood Glucose (65-95) mg/dL Urine WBC (Auto) (0.0-6.0) /HPF Salicylates (2.8-20.0) mg/dL Acetaminophen (10.0-30.0) ug/mL 01/17/21 01/18/21 01/18/21 Range/Units Unknown 00:07 01:43 Hgb (10.1-14.3) gm/dl Hct (30.3-42.9) % MCV (79-97) fl Lymph % (Auto) (13.4-35.0) % Lymph # (Auto) (1.2-5.4) K/mm3 Seg Neutrophils % (40.0-70.0) % POC ABG pO2 (83-108) mmHg ABG Potassium (3.40-4.50) mmol/L ABG Glucose (65-95) mg/dL Carboxyhemoglobin (0.5-1.5) Sodium (137-145) mmol/L Potassium (3.6-5.0) mmol/L Glucose (65-100) mg/dL POC Glucose 124 H 141 H (70-105) mg/dL Ammonia (25-60) umol/L Albumin (3.9-5) g/dL TSH (0.270-4.200) mlU/mL Arterial Blood Glucose (65-95) mg/dL Urine WBC (Auto) 21.0 H (0.0-6.0) /HPF Salicylates (2.8-20.0) mg/dL Acetaminophen (10.0-30.0) ug/mL 01/18/21 01/18/21 01/18/21 Range/Units 04:57 04:57 05:43 Hgb 14.8 H (10.1-14.3) gm/dl Hct 44.5 H (30.3-42.9) % MCV (79-97) fl Lymph % (Auto) 11.0 L (13.4-35.0) % Lymph # (Auto) 0.8 L (1.2-5.4) K/mm3 Seg Neutrophils % 86.5 H (40.0-70.0) % POC ABG pO2 (83-108) mmHg ABG Potassium (3.40-4.50) mmol/L ABG Glucose (65-95) mg/dL Carboxyhemoglobin (0.5-1.5) Sodium 136 L D (137-145) mmol/L Potassium (3.6-5.0) mmol/L Glucose 147 H (65-100) mg/dL POC Glucose 170 H (70-105) mg/dL Ammonia (25-60) umol/L Albumin 3.5 L (3.9-5) g/dL TSH (0.270-4.200) mlU/mL Arterial Blood Glucose (65-95) mg/dL Urine WBC (Auto) (0.0-6.0) /HPF Salicylates (2.8-20.0) mg/dL Acetaminophen (10.0-30.0) ug/mL 01/18/21 Range/Units 08:22 Hgb (10.1-14.3) gm/dl Hct (30.3-42.9) % MCV (79-97) fl Lymph % (Auto) (13.4-35.0) % Lymph # (Auto) (1.2-5.4) K/mm3 Seg Neutrophils % (40.0-70.0) % POC ABG pO2 (83-108) mmHg ABG Potassium (3.40-4.50) mmol/L ABG Glucose (65-95) mg/dL Carboxyhemoglobin (0.5-1.5) Sodium (137-145) mmol/L Potassium (3.6-5.0) mmol/L Glucose (65-100) mg/dL POC Glucose 163 H (70-105) mg/dL Ammonia (25-60) umol/L Albumin (3.9-5) g/dL TSH (0.270-4.200) mlU/mL Arterial Blood Glucose (65-95) mg/dL Urine WBC (Auto) (0.0-6.0) /HPF Salicylates (2.8-20.0) mg/dL Acetaminophen (10.0-30.0) ug/mL All other labs normal.
--- NOTE | 2021-01-18 11:55 | Discharge Summary ---
Providers - Providers Date of Admission: 01/17/21 21:11 Attending physician: RUTHIE PETERS MD 01/17/21 21:59 psychiatry consult [Consult to Mental Health] [CONS] Stat Reason For Exam: psych hx-acute encephalopathy Primary care physician: ELSI CHRISTIANSON MD Hospitalization Condition: Stable Hospital course: UTI ABX Disposition: HOME / SELF CARE / HOMELESS Exam - Constitutional Vitals: Temp Pulse Resp BP Pulse Ox 97.8 F 57 L 10 L 122/79 97 01/17/21 16:05 01/18/21 11:00 01/18/21 11:00 01/18/21 11:00 01/18/21 11:00 Plan Activity: advance as tolerated, fall precautions Diet: low fat Special Instructions: record daily weights, record daily BP diary Plan of Treatment: please discuss with your pain doctor about your doses of methadone to lower and review intractions. avoid additional opiods Follow up with: ELSI CHRISTIANSON MD [Primary Care Provider] - 3-5 Days JUAN PABLO CHA MD [Staff Physician] - 7 Days Prescriptions: levoFLOXacin [Levaquin TAB] 500 mg PO QDAY #3 tablet Sennosides Tab [Senokot] 8.6 mg PO Q12HR PRN #30 tablet PRN Reason: Constipation
[2021-01-18 12:52] VITALS: BP 113/70
== END 2021-01-18 12:52 | disposition home or self-care (01) ==
LOC: ED 15:51 → IMCU 21:11 → 3A 22:01
PROVIDERS: ADMIT Hospitalist; ATTEND Internal Medicine
DX: G93.40 Encephalopathy, unspecified (principal); Z20.822 Contact with and (suspected) exposure to COVID-19; E16.2 Hypoglycemia, unspecified; E72.20 Disorder of urea cycle metabolism, unspecified; E66.01 Morbid (severe) obesity due to excess calories; N39.0 Urinary tract infection, site not specified; R94.6 Abnormal results of thyroid function studies; E78.5 Hyperlipidemia, unspecified; F31.9 Bipolar disorder, unspecified; F20.9 Schizophrenia, unspecified; F17.210 Nicotine dependence, cigarettes, uncomplicated; Z79.899 Other long term (current) drug therapy; Z98.890 Other specified postprocedural states; Z79.82 Long term (current) use of aspirin; Z68.41 Body mass index [BMI] 40.0-44.9, adult
CPT/HCPCS: 36415; 70450; 71045; 80053; 80307; 81001; 82140; 82550; 82805; 82962; 83036; 83735; 83880; 84436; 84443; 84481; 84484; 85025; 85610; 85730; 87040; 87076; 87086; 87186; 93005; 96361; 96365; 96367; 96372; 96375; 99291; G0378; J0456; J0696; J1100; J1630; J1650; J2060; J2310; J3480; U0003; 80320; G0480